=== PATIENT | male | born 1975 | race Caucasian/White ===

== ENCOUNTER 2024-01-25 10:17 | Emergency (ER) | payer MEDICAID, SELFPAY ==
[2024-01-25 10:23] VITALS: BP 142/99; PULSE 87; RESP 16; TEMP 36.6; O2SAT 99
[2024-01-25 10:25] VITALS: BP 142/99; PULSE 87; RESP 16; TEMP 36.6; O2SAT 99; BMI 25.8
--- NOTE | 2024-01-25 10:38 | ED_ITS ---
HPI - General Adult General Date Seen: 01/25/24 Chief complaint: Laceration/Wound Stated complaint: head laceration Time Seen by Provider: 01/25/24 10:36 Source: patient and RN notes reviewed Mode of arrival: ambulatory Limitations: no limitations History of Present Illness HPI narrative: Patient is a 48-year-old male who says his ex- accidentally closed the trunk door on his head. No loss of consciousness, vomiting, headache. Does have pain at the site of the laceration on the top of his scalp. Tetanus up-to-date Related Data Home Medications ?Medication ?Instructions ?Recorded ?Confirmed No Known Home Medications 01/25/24 01/25/24 Allergies Allergy/AdvReac Type Severity Reaction Status Date / Time peanuts Allergy Severe Uncoded 01/25/24 10:22 Review of Systems Status of ROS: Reports: 10 or more systems reviewed and unremarkable except as noted in History and below [facility] Social History Smoking Status: Current every day smoker Do you use any of these nicotine containing products: Vaping Products Second hand tobacco smoke exposure: No How often do you have a drink containing alcohol: never AUDIT-C Alcohol total score: 0 Non-prescribed substance use: marijuana (any form) Exam Narrative: Exam Narrative: Vital signs reviewed. In general, alert, well-appearing male. Head: Normocephalic. He has a 2 cm laceration on the top of his scalp, bleeding controlled. This extends through the dermis but there is no gaping. Neurologic: Alert, conversant, gait stable. Const: Vital Signs, click to edit/add: Vital Signs - 24 hr 01/25/24 10:23 01/25/24 10:25 Temperature 97.8 F 97.8 F Pulse Rate [Pulse Oximeter] 87 87 Respiratory Rate 16 16 Blood Pressure [Le ft Upper Arm] 142/99 H 142/99 H Pulse Oximetry 99 99 Oxygen Delivery Me thod Room Air Room Air Documenting provider has reviewed patient's vital signs: yes Course Course ED Course: Procedure note: Wound was clean, edges are well approximated and I think it was appropriate for glue. Closed with Dermabond, tolerated well without immediate complication. No signs of severe head injury here. Return for severe pain, vomiting, confusion etcetera or signs of infection. Otherwise, discussed Dermabond care. Vital Signs Vital signs: Initial Vital Signs Temperature 97.8 F 01/25/24 10:23 Temperature Source Temporal Artery Scan 01/25/24 10:23 Pulse Rate 87 01/25/24 10:23 Pulse Rhythm Regular 01/25/24 10:23 Pulse Strength 3+ Normal 01/25/24 10:23 Respiratory Rate 16 01/25/24 10:23 Respiratory Effort Normal 01/25/24 10:23 Respiratory Depth Normal 01/25/24 10:23 Respiratory Pattern Normal 01/25/24 10:23 Blood Pressure 142/99 H 01/25/24 10:23 Blood Pressure Mean 113 H 01/25/24 10:23 Blood Pressure Position Sitting 01/25/24 10:23 Pulse Oximetry 99 01/25/24 10:23 Oxygen Delivery Method Room Air 01/25/24 10:23 Vital Signs Temperature 97.8 F 01/25/24 10:23 Pulse Rate 87 01/25/24 10:23 Respiratory Rate 16 01/25/24 10:23 Blood Pressure 142/99 H 01/25/24 10:23 Pulse Oximetry 99 01/25/24 10:23 Oxygen Delivery Method Room Air 01/25/24 10:23 Temperature 97.8 F 01/25/24 10:25 Pulse Rate 87 01/25/24 10:25 Respiratory Rate 16 01/25/24 10:25 Blood Pressure 142/99 H 01/25/24 10:25 Pulse Oximetry 99 01/25/24 10:25 Oxygen Delivery Method Room Air 01/25/24 10:25 Discharge Plan Discharge Prescriptions: No Action No Known Home Medications
== END 2024-01-25 11:01 | disposition home or self-care (01) ==
PROVIDERS: Emergency Provider Emergency Medicine
DX: S01.01XA Laceration without foreign body of scalp, initial encounter (principal); W22.8XXA Striking against or struck by other objects, initial encounter
CPT/HCPCS: 12001; 99282; 99283